=== PATIENT | female | born 1995 | race African-American/Black ===

== ENCOUNTER 2018-01-22 23:18 | Emergency (ER) | payer OTHER ==
[2018-01-23] MEDS ORDERED: HYDROCODONE/ACETAMINOPHEN 5-325 MG (6 TAB/ER DISP) PO PRN (00:34)
[2018-01-23] MEDS ORDERED: LIDOCAINE 5% (700 MG) TRANSDERMAL ADH..PATCH TP ONE (00:34)
--- NOTE | 2018-01-23 00:36 | ER Document Report ---
HPI - HPI Patient complains to provider of: Left neck tenderness Onset: Other - 2 weeks Onset/Duration: Persistent Quality of pain: Achy Pain Level: 4 Context: Patient complains of left-sided neck pain for the past 2 weeks. Patient did see her primary doctor about this complaint and was advised to take Tylenol. She denies any injury. Patient denies any fever. Associated Symptoms: Other - Left lateral neck pain. denies: Fever, Headache Exacerbated by: Movement Relieved by: Remaining still Similar symptoms previously: No Recently seen / treated by doctor: Yes - ROS ROS below otherwise negative: Yes Systems Reviewed and Negative: Yes All other systems reviewed and negative - CONSTITUTIONAL Constitutional: DENIES: Fever, Chills - NEURO Neurology: DENIES: Headache, Weakness - CARDIOVASCULAR Cardiovascular: DENIES: Chest pain - GASTROINTESTINAL Gastrointestinal: DENIES: Nausea - REPRODUCTIVE LMP: na - MUSCULOSKELETAL Musculoskeletal: REPORTS: Back Pain, Neck Pain - DERM Skin Color: Normal Skin Problems: None Past Medical History - General Information source: Patient - Social History Smoking Status: Never Smoker Frequency of alcohol use: Occasional Drug Abuse: None Occupation: Active duty Family History: Reviewed & Not Pertinent Renal/ Medical History: Reports: Hx Ovarian Cysts - PCO S Past Surgical History: Reports: Hx Orthopedic Surgery Vertical Provider Document - CONSTITUTIONAL Agree With Documented VS: Yes Exam Limitations: No Limitations General Appearance: WD/WN, No Apparent Distress - INFECTION CONTROL TRAVEL OUTSIDE OF THE [place] IN LAST 30 DAYS: No - HEENT HEENT: Atraumatic, Normocephalic. negative: Pharyngeal Exudate, Pharyngeal Tenderness, Pharyngeal Erythema, Tympanic Membrane Red, Tympanic Membrane Bulging - NECK Neck: Normal Inspection, Supple. negative: Lymphadenopathy-Left, Lymphadenopathy-Right Notes: No meningismus - RESPIRATORY Respiratory: Breath Sounds Normal, No Respiratory Distress - CARDIOVASCULAR Cardiovascular: Regular Rate, Regular Rhythm, No Murmur - BACK Back: Abnormal Inspection - Left trapezius muscle tenderness with spasm. negative: CVA Tenderness-Right, CVA Tenderness-Left - MUSCULOSKELETAL/EXTREMETIES Musculoskeletal/Extremeties: COY CHAMPION - NEURO Level of Consciousness: Awake, Alert, Appropriate Motor/Sensory: No Motor Deficit - DERM Integumentary: Warm, Dry, No Rash Course - Vital Signs Vital signs: Temp Pulse Resp BP Pulse Ox 98.5 F 65 18 124/85 98 01/22/18 23:42 01/22/18 23:42 01/22/18 23:42 01/22/18 23:42 01/22/18 23:42 Discharge - Discharge Clinical Impression: Trapezius muscle spasm Condition: Stable Disposition: HOME, SELF-CARE Instructions: Muscle Relaxers ([facility]), Muscle Strain ([facility]), Warm Packs ([facility]) Additional Instructions: Return immediately for any new or worsening symptoms Followup with your primary care provider, call tomorrow to make a followup appointment Prescriptions: Methocarbamol [Robaxin 500 Mg Tablet] 500 mg PO QID PRN #24 tablet PRN Reason: Naproxen [Naprosyn 250 Nmg Tablet] 1 tab PO BID #14 tablet Referrals: [facility] [Provider Group] - Follow up as needed
[2018-01-23 02:00] VITALS: BP 119/73
== END 2018-01-23 02:15 | disposition home or self-care (01) ==
LOC: ER 23:18
DX: M62.830 Muscle spasm of back (principal); M54.2 Cervicalgia
CPT/HCPCS: 99283